=== PATIENT | male | born 1960 | race American Indian/Alaskan Native ===

== ENCOUNTER 2017-11-15 12:52 | Emergency (ER) | payer MEDICARE ==
[2017-11-15] MEDS ORDERED: TYLENOL PO ONE (14:27)
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
[2017-11-15 15:20] VITALS: BP 142/78
== END 2017-11-15 15:21 | disposition home or self-care (01) ==
LOC: ED 12:52
DX: R51 Headache (principal); I10 Essential (primary) hypertension
CPT/HCPCS: 99282